=== PATIENT | female | born 1980 | race Caucasian/White ===

== ENCOUNTER → 2019-06-13 16:53 | Outpatient (CLI) | payer SELFPAY ==
--- NOTE | 2019-06-13 16:56 | BI_ITS ---
MAMMOGRAPHY - BILATERAL SCREENING REASON FOR EXAM: Female, 39 years old. Routine annual screening examination. PERTINENT HISTORY: Grandmother with breast cancer. TECHNIQUE: Digital bilateral breast heather (3D mammographic acquisition) in the CC and MLO projections. 2-D mediolateral oblique (MLO) and craniocaudad (CC) views of both breasts were obtained. CAD: Full Field Digital Mammography with Computer Added Detection was performed. COMPARISON: None. Baseline examination. FINDINGS: Breast Composition: The breasts are heterogeneously dense, which may obscure small masses. As seen on the normal symphysis views of the left breast on the craniocaudad projection, I suspect a 1.3 cm x 1.4 cm irregular nodule. I suspect this to be in the inferior aspect of the left breast on the MLO view. The patient will be recalled for additional views including compression spot views of the left breast in the craniocaudad view as well as a 90 degree lateral view of the left breast. No other significant abnormalities are identified. BI/SCREEN MAMM (CAD) W/HEATHER BILAT IMPRESSION: I suspect an irregular nodule in the left breast as described. The patient will be recalled for additional views. Recall Side: Left Breast ASSESSMENT CATEGORY: BIRADS Category 0: Incomplete. Need additional imaging evaluation. A letter regarding these results will be sent to the patient by the facility within 30 days. Approximately 10% of breast cancers are not detected by mammography. A normal mammogram should not delay biopsy of a clinically suspicious abnormality. [id number] Electronically Signed: Maximiliano Jang, at 8:12 EST , Service support ,
== END ==
PROVIDERS: Referring Provider Obstetrics & Gynecology; Visit Provider Obstetrics & Gynecology
DX: Z12.31 Encounter for screening mammogram for malignant neoplasm of breast (principal)
CPT/HCPCS: 77063; 77067

== ENCOUNTER → 2019-06-16 13:57 | Outpatient (CLI) | payer SELFPAY ==
--- NOTE | 2019-06-16 14:07 | BI_ITS ---
MAMMOGRAPHY - UNILATERAL DIAGNOSTIC: LEFT BREAST REASON FOR EXAM: Female, 39 years old. Abnormal screening mammogram. PERTINENT HISTORY: Grandmother with breast cancer. TECHNIQUE: Compression spot views of the left breast in the MLO and craniocaudad projections were obtained. CAD: Full Field Digital Mammography with Computer Added Detection was performed. COMPARISON: Comparison is made with prior mammogram dated June 13, 2019. FINDINGS: Breast Composition: The breasts are heterogeneously dense, which may obscure small masses. There are no dominant masses or suspicious calcifications. No other significant abnormalities are identified. BI/DIAG MAMM W/CAD, UNILAT IMPRESSION: Negative unilateral diagnostic mammogram. Yearly followup mammogram recommended. (A) ASSESSMENT CATEGORY: BIRADS Category 2: Benign. A letter regarding these results will be sent to the patient by the facility within 30 days. Approximately 10% of breast cancers are not detected by mammography. A normal mammogram should not delay biopsy of a clinically suspicious abnormality. Electronically Signed: Maximiliano Jang, at 15:18 EST , Service support ,
== END ==
PROVIDERS: Referring Provider Obstetrics & Gynecology; Visit Provider Obstetrics & Gynecology
DX: R92.2 Inconclusive mammogram (principal)
CPT/HCPCS: 77065

== ENCOUNTER → 2020-12-17 | Outpatient (CLI) | payer OTHER, SELFPAY ==
[2020-12-21 15:18] LABS: HPV APTIMA, High Risk Negative (Negative)
== END | disposition home or self-care (01) ==
LOC: LABSPEC 12-18 09:29
PROVIDERS: Visit Provider Obstetrics & Gynecology
DX: Z12.4 Encounter for screening for malignant neoplasm of cervix (principal)
CPT/HCPCS: 87624; 88175; G0145

== ENCOUNTER → 2021-01-02 16:22 | Outpatient (CLI) | payer OTHER, SELFPAY ==
--- NOTE | 2021-01-02 16:24 | BI_ITS ---
MAMMOGRAPHY - BILATERAL SCREENING REASON FOR EXAM: Female, 40 years old. Routine annual screening examination. PERTINENT HISTORY: Grandmother with breast cancer. TECHNIQUE: Digital bilateral breast heather (3D mammographic acquisition) in the CC and MLO projections. 2-D mediolateral oblique (MLO) and craniocaudad (CC) views of both breasts were obtained. CAD: Full Field Digital Mammography with Computer Added Detection was performed. COMPARISON: Comparison is made with prior study dated 06/13/2019 and 06/16/2019. FINDINGS: Breast Composition: The breasts are heterogeneously dense, which may obscure small masses. There are no dominant masses or suspicious calcifications. No other significant abnormalities are identified. There has been no significant change since the prior study. BI/SCRN MAMM (CAD)W/HEATHER BILAT IMPRESSION: Stable bilateral screening mammogram. Yearly follow-up mammogram recommended. (A) ASSESSMENT CATEGORY: BIRADS Category 1: Negative. A letter regarding these results will be sent to the patient by the facility within 30 days. Approximately 10% of breast cancers are not detected by mammography. A normal mammogram should not delay biopsy of a clinically suspicious abnormality. [id number] Electronically Signed: Maximiliano Jang MD at 8:15 EDT , Service support ,
== END ==
PROVIDERS: PCP Family Medicine; Referring Provider Obstetrics & Gynecology; Visit Provider Obstetrics & Gynecology
DX: Z12.31 Encounter for screening mammogram for malignant neoplasm of breast (principal); Z80.3 Family history of malignant neoplasm of breast
CPT/HCPCS: 77063; 77067

== ENCOUNTER → 2022-02-10 | Outpatient (CLI) | payer OTHER, SELFPAY ==
--- NOTE | 2022-02-10 15:55 | BI_ITS ---
MAMMOGRAPHY - BILATERAL SCREENING REASON FOR EXAM: Female, 42 years old. Routine annual screening examination. PERTINENT HISTORY: Grandmother with breast cancer. TECHNIQUE: Digital bilateral breast heather (3D mammographic acquisition) in the CC and MLO projections. 2-D mediolateral oblique (MLO) and craniocaudad (CC) views of both breasts were obtained. CAD: Full Field Digital Mammography with Computer Added Detection was performed. COMPARISON: Comparison is made with prior study dated 01/02/2021 and 06/13/2019. FINDINGS: Breast Composition: The breasts are heterogeneously dense, which may obscure small masses. There are no dominant masses or suspicious calcifications. Stable left axillary lymph node. No other significant abnormalities are identified. There has been no significant change since the prior study. BI/SCRN MAMM (CAD)W/HEATHER BILAT IMPRESSION: Stable bilateral screening mammogram. Yearly follow-up mammogram recommended. (A) ASSESSMENT CATEGORY: BIRADS Category 2: Benign. A letter regarding these results will be sent to the patient by the facility within 30 days. Approximately 10% of breast cancers are not detected by mammography. A normal mammogram should not delay biopsy of a clinically suspicious abnormality. [id number] Electronically Signed: Maximiliano Jang MD at 8:54 EDT ,
== END | disposition home or self-care (01) ==
LOC: OPBI 15:51
PROVIDERS: PCP Family Medicine; Referring Provider Obstetrics & Gynecology; Visit Provider Obstetrics & Gynecology
DX: Z12.31 Encounter for screening mammogram for malignant neoplasm of breast (principal); Z80.3 Family history of malignant neoplasm of breast
CPT/HCPCS: 77063; 77067

== ENCOUNTER → 2023-02-24 | Outpatient (CLI) | payer OTHER, SELFPAY ==
--- NOTE | 2023-02-24 15:26 | BI_ITS ---
MAMMOGRAPHY - BILATERAL SCREENING REASON FOR EXAM: Female, 43 years old. Routine annual screening examination. PERTINENT HISTORY: Grandmother with breast cancer. TECHNIQUE: Digital bilateral breast heather (3D mammographic acquisition) in the CC and MLO projections. 2-D mediolateral oblique (MLO) and craniocaudad (CC) views of both breasts were obtained. CAD: Full Field Digital Mammography with Computer Added Detection was performed. COMPARISON: Comparison is made with prior study dated February 10, 2022 and January 02, 2021. FINDINGS: Breast Composition: The breasts are heterogeneously dense, which may obscure small masses. Focal area of architectural distortion is seen in the deep inferior lateral aspect of the left breast. This measures 7 mm x 10.6 mm. Correlation with ultrasound is recommended. Stable small benign-appearing bilateral axillary lymph nodes. No other significant abnormalities are identified. BI/SCRN MAMM (CAD)W/HEATHER BILAT IMPRESSION: Focal area of architectural distortion is seen in the deep inferior lateral aspect of the left breast. Correlation with ultrasound is recommended. ASSESSMENT CATEGORY: BIRADS Category 0: Incomplete. Need additional imaging evaluation. A letter regarding these results will be sent to the patient by the facility within 30 days. Approximately 10% of breast cancers are not detected by mammography. A normal mammogram should not delay biopsy of a clinically suspicious abnormality. [id number] Electronically Signed: Maximiliano Jang MD at 8:03 EDT ,
== END | disposition home or self-care (01) ==
LOC: OPBI 15:25
PROVIDERS: PCP Family Medicine; Referring Provider Student in an Organized Health Care Education/Training Program; Visit Provider Student in an Organized Health Care Education/Training Program
DX: Z12.31 Encounter for screening mammogram for malignant neoplasm of breast (principal)
CPT/HCPCS: 77063; 77067

== ENCOUNTER → 2023-02-26 | Outpatient (CLI) | payer OTHER, SELFPAY ==
--- NOTE | 2023-02-26 15:07 | US_ITS ---
STUDY: ULTRASOUND BREAST - LEFT REASON FOR EXAM: Female, 43 years old. Abnormal screening mammogram. TECHNIQUE: Axial and longitudinal images of the LEFT breast were performed with a high resolution ultrasound transducer. # OF IMAGES: 50 COMPARISON: Comparison is made with prior study dated February 24, 2023. FINDINGS: LEFT Breast: The lateral half of the left breast was examined with ultrasound. Heterogeneously dense breast tissue. US/Breast Limited Unilateral IMPRESSION: No sonographic abnormality is seen. ASSESSMENT CATEGORY: BIRADS Category 1: Negative. A letter regarding these results will be sent to the patient by the facility within 30 days. Electronically Signed: Maximiliano Jang MD at 14:41 EDT ,
== END | disposition home or self-care (01) ==
PROVIDERS: PCP Family Medicine; Referring Provider Student in an Organized Health Care Education/Training Program; Visit Provider Student in an Organized Health Care Education/Training Program
DX: R92.8 Other abnormal and inconclusive findings on diagnostic imaging of breast (principal)
CPT/HCPCS: 76642

== ENCOUNTER → 2024-04-19 | Outpatient (CLI) | payer OTHER, SELFPAY ==
--- NOTE | 2024-04-19 15:10 | BI_ITS ---
MAMMOGRAPHY - BILATERAL SCREENING REASON FOR EXAM: Female, 44 years old. Routine annual screening examination. PERTINENT HISTORY: Grandmother with breast cancer. TECHNIQUE: Digital bilateral breast heather (3D mammographic acquisition) in the CC and MLO projections. 2-D mediolateral oblique (MLO) and craniocaudad (CC) views of both breasts were obtained. CAD: Full Field Digital Mammography with Computer Added Detection was performed. COMPARISON: Comparison is made with prior study dated February 24, 2023. FINDINGS: Breast Composition: The breasts are heterogeneously dense, which may obscure small masses. There is a 1.3 cm x 1 cm focal area of architectural distortion in the deep slightly inferior lateral aspect of the left breast. The patient will be recalled for additional views including 90 degree lateral and compression spot views. No other significant abnormalities are identified. BI/SCRN MAMM (CAD)W/HEATHER BILAT IMPRESSION: Focal] distortion seen in the slightly inferior lateral aspect of the left breast as described. The patient will be recalled for additional views including 90 degree lateral and compression spot views. Recall Side: Left Breast ASSESSMENT CATEGORY: BIRADS Category 0: Incomplete. Need additional imaging evaluation. A letter regarding these results will be sent to the patient by the facility within 30 days. Approximately 10% of breast cancers are not detected by mammography. A normal mammogram should not delay biopsy of a clinically suspicious abnormality. [id number] Electronically Signed: Maximiliano Jang MD at 8:19 EDT ,
== END | disposition home or self-care (01) ==
LOC: OPBI 15:10
PROVIDERS: PCP Family Medicine; Referring Provider Nurse Practitioner Family; Visit Provider Nurse Practitioner Family
DX: Z12.31 Encounter for screening mammogram for malignant neoplasm of breast (principal)
CPT/HCPCS: 77063; 77067

== ENCOUNTER → 2024-04-24 | Outpatient (CLI) | payer OTHER, SELFPAY ==
--- NOTE | 2024-04-24 14:31 | BI_ITS ---
MAMMOGRAPHY - UNILATERAL DIAGNOSTIC: LEFT BREAST REASON FOR EXAM: Female, 44 years old. ABN MAMM PERTINENT HISTORY: Non-contributory. TECHNIQUE: Digital examination. Mediolateral oblique (MLO) and craniocaudad (CC) views of the breast were obtained. CAD: CAD was not performed on this study. COMPARISON: 04/19/2024 FINDINGS: Breast Composition: The breasts are heterogeneously dense, which may obscure small masses. Focal compression views do not confirm a discrete mass or persistent architectural distortion most consistent with normal breast parenchyma. No other significant abnormalities are identified. BI/DIAG MAMM W/CAD, UNILAT IMPRESSION: Stable unilateral diagnostic mammogram. ASSESSMENT CATEGORY: BIRADS Category 1: Negative. A letter regarding these results will be sent to the patient by the facility within 30 days. FOLLOW-UP RECOMMENDATION: Yearly follow-up mammogram recommended. (A) Approximately 10% of breast cancers are not detected by mammography. A normal mammogram should not delay biopsy of a clinically suspicious abnormality. Electronically Signed: Jacky Edwards MD at 15:34 EDT ,
--- NOTE | 2024-04-24 14:31 | US_ITS ---
STUDY: ULTRASOUND BREAST - LEFT REASON FOR EXAM: Female, 44 years old. Abnormal screening mammogram. TECHNIQUE: Axial and longitudinal images of the LEFT breast were performed with a high resolution ultrasound transducer. # OF IMAGES: 63 COMPARISON: Diagnostic mammogram earlier today, screening mammogram 04/19/2024 FINDINGS: LEFT Breast: Heterogeneous background echotexture. Multiple longitudinal and transverse ultrasound images of the lateral aspect of the left breast did not demonstrate a discrete solid or cystic mass most consistent with normal breast parenchyma.: US/Breast Limited Unilateral IMPRESSION: Normal diagnostic mammogram the left breast ultrasound. ASSESSMENT CATEGORY: BIRADS Category 1: Negative. A letter regarding these results will be sent to the patient by the facility within 30 days. Electronically Signed: Jacky Edwards MD at 20:46 EDT ,
== END | disposition home or self-care (01) ==
PROVIDERS: PCP Family Medicine; Referring Provider Nurse Practitioner Family; Visit Provider Nurse Practitioner Family
DX: R92.8 Other abnormal and inconclusive findings on diagnostic imaging of breast (principal)
CPT/HCPCS: 76642; 77065

== ENCOUNTER → 2025-02-19 | Outpatient (CLI) | payer OTHER, SELFPAY ==
[2025-02-23 13:08] LABS: HPV APTIMA, High Risk Negative (Negative)
== END | disposition home or self-care (01) ==
LOC: LABSPEC 11:46
PROVIDERS: PCP Family Medicine; Visit Provider Nurse Practitioner Family
DX: Z12.4 Encounter for screening for malignant neoplasm of cervix (principal)
CPT/HCPCS: 87624; 88175; G0145

== ENCOUNTER → 2025-04-26 | Outpatient (CLI) | payer OTHER, SELFPAY ==
--- NOTE | 2025-04-26 15:30 | BI_ITS ---
EXAM: SCRN MAMM (CAD)W/HEATHER BILAT DATE: 04/26/2025 CLINICAL HISTORY: F, Age 45 y/o , SCREENING MAMMOGRAM FOR BREAST CANCER TECHNIQUE: Procedure Code: [id number] Modality: MG Procedure: SCRN MAMM (CAD)W/HEATHER BILAT COMPARISON: Prior exam(s) dated 04/24/2024, 04/19/2024, 02/24/2023. FINDINGS: TISSUE DENSITY: The breasts are heterogeneously dense, which may obscure small masses. The mammogram demonstrates that the patient has dense breasts. Supplemental screening with whole breast ultrasound or MRI may be considered for further evaluation. Bilateral Breast Mammographic Findings: Architectural distortion in the lower slightly outer left breast at middle depth. No significant masses, calcifications or other abnormalities are identified in the right breast. BI/SCRN MAMM (CAD)W/HEATHER BILAT IMPRESSION: There is architectural distortion in the slightly lower outer left breast at mi ddle depth which requires further evaluation. Recommend diagnostic mammogram and ultrasound of the left breast. If no sonogr aphic correlate is visualized recommend stereotactic/tomosynthesis guided core needle biopsy. OVERALL FINAL ASSESSMENT BI-RADS 4: SUSPICIOUS RECOMMENDATION: Additional Views obtained/call backs Additional Recommendation stereotactic/tomosynthesis guided biopsy recommended if no sonographic correlate is visualized. A letter with findings and recommendations will be mailed to the patient. Reading Location: [id number]
== END | disposition home or self-care (01) ==
PROVIDERS: Referring Provider Nurse Practitioner Family; Visit Provider Nurse Practitioner Family
DX: Z12.31 Encounter for screening mammogram for malignant neoplasm of breast (principal)
CPT/HCPCS: 77063; 77067

== ENCOUNTER → 2025-05-03 | Outpatient (CLI) | payer OTHER, SELFPAY ==
--- NOTE | 2025-05-03 09:00 | BI_ITS ---
EXAM: DIAG MAMM W/CAD, BILAT; BREAST COMPLETE UNILATERAL; LT BRST UNILAT HEATHER ADD ON 05/03/2025 CLINICAL HISTORY: F, Age 45 y/o , BREAST ABNORMALITY; ABNORMAL MAMMO; R928 TECHNIQUE: Procedure Code: [id number]; USBRU; BILTUNITOMO Modality: MG; US Procedure: DIAG MAMM W/CAD, BILAT; BREAST COMPLETE UNILATERAL; LT BRST UNILAT HEATHER ADD ON. COMPARISON: Prior exam(s) dated 04/26/2025, 03/28/2024, 04/19/2024, 02/24/2023. FINDINGS: MAMMOGRAM: TISSUE DENSITY: The breasts are heterogeneously dense, which may obscure small masses. The mammogram demonstrates that the patient has dense breasts. Supplemental screening with whole breast ultrasound or MRI may be considered for further evaluation. Unilateral Left Breast Mammographic Findings: Follow-up examination performed for the architectural distortion in the left breast seen on examination of 04/26/2025. On the present examination, there is architectural distortion in the lower outer left breast at middle depth which appears to be more prominent on today's examination when compared to multiple priors dating back to 2022. ULTRASOUND: Ultrasound performed of the lower-inner quadrant of the left breast demonstrates an ill-defined irregular heterogeneous mass at 4 o'clock 3 cm from the nipple measuring 1.5 x 1.4 x 0.8 cm. There is posterior shadowing. This is the likely correlate for the mammographic finding. The remainder of the left breast was imaged demonstrating no additional suspicious sonographic findings. There is no left axillary lymphadenopathy. BI/Lt Brst Unilat Heather Add On IMPRESSION: Suspicious mass in the lower outer left breast requires further evaluation. Re commend tissue sampling with ultrasound-guided biopsy if the biopsying radiologist can visualize this subtle mass. However, t his mass is also amenable to stereotactic guided biopsy if indicated. OVERALL FINAL ASSESSMENT BI-RADS 4: SUSPICIOUS RECOMMENDATION: Biopsy Recommended Additional Recommendation none A letter with findings and recommendations will be mailed to the patient. Reading Location: [id number]
--- NOTE | 2025-05-03 09:08 | BI_ITS ---
EXAM: DIAG MAMM W/CAD, BILAT; BREAST COMPLETE UNILATERAL; LT BRST UNILAT HEATHER ADD ON 05/03/2025 CLINICAL HISTORY: F, Age 45 y/o , BREAST ABNORMALITY; ABNORMAL MAMMO; R928 TECHNIQUE: Procedure Code: [id number]; USBRU; BILTUNITOMO Modality: MG; US Procedure: DIAG MAMM W/CAD, BILAT; BREAST COMPLETE UNILATERAL; LT BRST UNILAT HEATHER ADD ON. COMPARISON: Prior exam(s) dated 04/26/2025, 03/28/2024, 04/19/2024, 02/24/2023. FINDINGS: MAMMOGRAM: TISSUE DENSITY: The breasts are heterogeneously dense, which may obscure small masses. The mammogram demonstrates that the patient has dense breasts. Supplemental screening with whole breast ultrasound or MRI may be considered for further evaluation. Unilateral Left Breast Mammographic Findings: Follow-up examination performed for the architectural distortion in the left breast seen on examination of 04/26/2025. On the present examination, there is architectural distortion in the lower outer left breast at middle depth which appears to be more prominent on today's examination when compared to multiple priors dating back to 2022. ULTRASOUND: Ultrasound performed of the lower-inner quadrant of the left breast demonstrates an ill-defined irregular heterogeneous mass at 4 o'clock 3 cm from the nipple measuring 1.5 x 1.4 x 0.8 cm. There is posterior shadowing. This is the likely correlate for the mammographic finding. The remainder of the left breast was imaged demonstrating no additional suspicious sonographic findings. There is no left axillary lymphadenopathy. BI/DIAG MAMM W/CAD, BILAT IMPRESSION: Suspicious mass in the lower outer left breast requires further evaluation. Re commend tissue sampling with ultrasound-guided biopsy if the biopsying radiologist can visualize this subtle mass. However, t his mass is also amenable to stereotactic guided biopsy if indicated. OVERALL FINAL ASSESSMENT BI-RADS 4: SUSPICIOUS RECOMMENDATION: Biopsy Recommended Additional Recommendation none A letter with findings and recommendations will be mailed to the patient. Reading Location: [id number]
== END | disposition home or self-care (01) ==
PROVIDERS: Referring Provider Nurse Practitioner Family; Visit Provider Nurse Practitioner Family
DX: R92.8 Other abnormal and inconclusive findings on diagnostic imaging of breast (principal); N64.59 Other signs and symptoms in breast
CPT/HCPCS: 76641; 77061; 77066; G0279